=== PATIENT | female | born 1995 | race Caucasian/White ===

== ENCOUNTER 2021-03-16 12:19 | Emergency (ER) | payer BC, SELFPAY ==
--- NOTE | ~2021-03-16 | XR_ITS ---
EXAMINATION: XR foot LT min 3V DATE: 03/16/2021 13:03 INDICATION: Left foot pain TECHNIQUE: Dorsoplantar, lateral, and 2 oblique views of the left foot were obtained. COMPARISON: 09/15/2015 FINDINGS: There is an old healed fracture of the proximal aspect of the fifth metatarsal. There is an acute, traumatic, closed, nondisplaced fracture involving the head of the fifth metatarsal. Soft tis krystian swelling surrounds the fracture. The joint spaces are normal. IMPRESSION: 1. Acute fracture of the fifth metatarsal head. Reviewed, dictated and finalized at location A.
--- NOTE | ~2021-03-16 | XR_ITS ---
EXAMINATION: XR ankle LT min 3V DATE: 03/16/2021 13:03 INDICATION: Left ankle pain TECHNIQUE: Anteroposterior, lateral, mortise, and additional oblique view of the ankle were obtained. COMPARISON: 08/09/2012 FINDINGS: There is an acute fracture in the head of the fifth metatarsal. No ankle fracture is identi fied. Bone alignment is normal. The ankle soft tissues are unremarkable. IMPRESSION: 1. No ankle fracture. 2. Fifth metatarsal head fracture. Reviewed, dictated and finalized at location A.
[2021-03-16 12:30] VITALS: BP 156/94; PULSE 92; RESP 20; TEMP 36.4; O2SAT 100
[2021-03-16 13:47] VITALS: BP 148/62; PULSE 80; RESP 20; TEMP 36.8; O2SAT 99
--- NOTE | 2021-03-16 13:59 | ED.LOWEXIN ---
HPI - Extremity Injury (Lower) General Chief Complaint: Extremity Injury, Lower Stated Complaint: Fall, Left Foot Injury Time Seen by Provider: 03/16/21 13:54 Source: RN notes reviewed History of Present Illness HPI Narrative: Patient presents to emergency department from home for left foot pain. Patient states 2 days ago she is coming down the stairs when she tripped on the stairs and rolled her right ankle and foot states that since that time she is had pain with ecchymosis in the left lateral foot she denies any other trauma or injury she states she has been wearing a boot if she is fractured her right fifth metatarsal in the past and has crutches at home and is been taking ibuprofen Related Data Allergies Allergy/AdvReac Type Severity Reaction Status Date / Time codeine Allergy Mild Unknown Verified 11/16/19 13:00 Review of Systems Review of Systems: Narrative: Gen.: Denies fevers or chills Musculoskeletal: See HPI Neuro: Denies numbness, tingling, weakness Skin: Denies rash Endo: Denies DM PMFSH Past Medical History Medical History (Updated 03/16/21 @ 14:01 by Vinod Melendrez DO) Chronic headaches Sleep apnea Weight gain Surgical History Surgical History History of cholecystectomy Family History Family History Other Arthritis Cancer Heart disease Hypertension Neuropathy Social History Social History Smoking status: Never smoker Alcohol intake: current Substance use: unknown Gender identity (if verbalized by the patient): Female Exam Narrative: Exam Narrative: APPEARANCE: No acute distress, nontoxic, resting in bed Eyes: EOMI HEENT: Normocephalic, atraumatic, RESPIRATORY: No respiratory distress MUSCULOSKELETAl: Tender to palpation over the left dorsal lateral foot in the region of the fifth metatarsal no tenderness of the medial lateral malleolus no proximal fibula tenderness dorsalis pedis pulse 2+ neurovascular intact NEURO: Awake and alert. Following commands, speech normal, no focal deficits SKIN:: Warm, dry. Normal Color no rash or lesions Course Course Emergency Course: Patient states she is followed up with Dr. Bajwa for her other foot fractures in past and will follow she will continue to use the crutches she has at home as well as boot Discussed with patient results of workup and diagnosis. Discussed need for follow-up with primary care, proper use of medication, and reasons to return to the emergency department. Patient understands and agrees to current treatment plan Vital Signs Vital signs: Vital Signs Temperature 97.6 F 03/16/21 12:30 Pulse Rate 92 03/16/21 12:30 Respiratory Rate 20 03/16/21 12:30 Blood Pressure 156/94 H 03/16/21 12:30 Pulse Oximetry 100 03/16/21 12:30 Temperature 98.2 F 03/16/21 13:47 Pulse Rate 80 03/16/21 13:47 Respiratory Rate 20 03/16/21 13:47 Blood Pressure 148/62 H 03/16/21 13:47 Pulse Oximetry 99 03/16/21 13:47 MDM - Extremity Injury (Lower) Imaging Data Radiologist's impression: ITS Impressions Foot X-Ray 03/16/21 13:03 IMPRESSION: 1. Acute fracture of the fifth metatarsal head. Ankle X-Ray 03/16/21 13:07 IMPRESSION: 1. No ankle fracture. 2. Fifth metatarsal head fracture. Discharge Plan Discharge Clinical Impression: Closed nondisplaced fracture of fifth left metatarsal bone Patient Disposition: Home, Self-Care Condition: Stable Instructions: Antibiotic Form, Foot Fracture in Adults (ED) Additional Instructions: Return for increasing pain numbness or tingling in the extremities or any other symptoms or concern. Take ibuprofen at home as directed on the bottle for pain. Continue to use your boot and crutches you have at home until follow-up with orthopedics Prescriptions: No Action albuterol sulfate
--- NOTE | 2021-03-16 14:08 | PC.NURSE ---
patient has her own boot from a previous fracture which she applied
== END 2021-03-16 14:16 | disposition home or self-care (01) ==
PROVIDERS: Emergency Provider Emergency Medicine; PCP Internal Medicine
DX: S92.355A Nondisplaced fracture of fifth metatarsal bone, left foot, initial encounter for closed fracture (principal); W10.9XXA Fall (on) (from) unspecified stairs and steps, initial encounter
CPT/HCPCS: 73610; 73630; 99284

== ENCOUNTER 2021-04-03 12:48 | Outpatient (CLI) | payer BC, SELFPAY ==
--- NOTE | ~2021-04-03 | XR_ITS ---
EXAMINATION: XR foot RT min 3V EXAM DATE: 04/03/2021 13:05 INDICATION: Follow up, pain 5th digit into foot. TECHNIQUE: Right foot dorsoplantar, lateral and oblique projections obtained and reviewed. Compariso n is made to prior examination from 08/27/2019, 10/29/2019, 11/16/2019. FINDINGS: There is been progressive interval healing in the previously seen right 5th metatarsal shaf t stress fracture, with discrete lucency identified in 2018, becoming less apparent in 2019, and now with only faint band of sclerosis at that location, nearly healed stress fracture. No acute fracture line is identified. There are no bony erosions identified. The joint spaces are uniform. IMPRESSION: Essentially healed right 5th metatarsal stress fracture. Reviewed, dictated and finalized at location A.
--- NOTE | ~2021-04-03 | XR_ITS ---
XR foot LT min 3V DATE: 04/03/2021 13:05 INDICATION: Fifth metatarsal fracture TECHNIQUE: 4 views COMPARISON: 03/16/2021 left foot FINDINGS: The previous very subtle nondisplaced fracture at the neck of the fifth metatarsal bone is unchanged in position since 03/16/2021, with no obvious healing new bone formation.. No other fracture or dislocation. IMPRESSION: Very subtle nondisplaced fifth metatarsal neck fracture Reviewed, dictated and finalized at location B.
== END 2021-04-03 12:49 | disposition home or self-care (01) ==
LOC: ANHBWCIMG 12:49
PROVIDERS: PCP Internal Medicine; Visit Provider Orthopaedic Surgery
DX: M79.671 Pain in right foot (principal); M79.672 Pain in left foot
CPT/HCPCS: 73630

== ENCOUNTER 2021-04-17 13:04 | Outpatient (CLI) | payer BC, SELFPAY ==
--- NOTE | ~2021-04-17 | XR_ITS ---
EXAMINATION: XR foot LT min 3V DATE: 04/17/2021 13:16 INDICATION: Left fifth metatarsal fracture follow-up TECHNIQUE: Dorsoplantar, lateral, and 2 oblique views of the left foot were obtained. COMPARISON: 04/03/2021 FINDINGS: There is calcified callus at the site of the previously described fifth metatarsal head/nec k fracture. Soft tissue swelling is seen near the fracture site. No additional acute osseous findings are evident. The joint spaces are normal. IMPRESSION: 1. Fifth metatarsal head/neck fracture with routine healing. Reviewed, dictated and finalized at location A.
== END 2021-04-17 13:05 | disposition home or self-care (01) ==
LOC: ANHBWCIMG 13:04
PROVIDERS: PCP Internal Medicine; Visit Provider Orthopaedic Surgery
DX: S92.355A Nondisplaced fracture of fifth metatarsal bone, left foot, initial encounter for closed fracture (principal); X58.XXXA Exposure to other specified factors, initial encounter
CPT/HCPCS: 73630

== ENCOUNTER 2024-10-05 08:06 | Emergency (ER) | payer OTHER, SELFPAY ==
--- NOTE | ~2024-10-05 | XR_ITS ---
EXAMINATION: XR foot LT min 3V DATE: 10/05/2024 08:28 INDICATION: Pain to the left great toe post blunt trauma TECHNIQUE: Dorsoplantar, two oblique and lateral views of the left foot were obtained. COMPARISON: 04/17/2021 FINDINGS: Alignment is normal. No fracture. Joint spaces are normal. Small enthesophytes at the calcaneal inser tion of the distal Achilles tendon. Soft tissues are unremarkable. IMPRESSION: 1. No acute osseous abnormality. Reviewed, dictated and finalized at location B. 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
[2024-10-05 08:18] VITALS: BP 140/88; PULSE 92; RESP 16; TEMP 36.6; O2SAT 97
--- NOTE | 2024-10-05 08:46 | ED.LOWEXIN ---
HPI - Extremity Injury (Lower) General Chief Complaint: Extremity Injury, Lower Stated Complaint: left foot injury Time Seen by Provider: 10/05/24 08:44 Source: patient and family Mode of arrival: ambulatory Limitations: no limitations History of Present Illness HPI Narrative: Patient came to the ED with left foot pain dorsally after dropped a 35 lb weight while working out at the gym last night. She denies other injuries. Pain worse if she put weight on it. Related Data Home Medications ?Medication ?Instructions ?Recorded ?Confirmed ?Last Taken ?Type cariprazine 1.5 mg capsule 1.5 mg PO DAILY 03/21/21 04/17/21 Unknown History (Vraylar) Allergies Allergy/AdvReac Type Severity Reaction Status Date / Time codeine Allergy Mild Unknown Verified 10/05/24 08:23 Review of Systems Review of Systems: All systems reviewed & are unremarkable except as noted in HPI and below PMFSH Past Medical History Medical History Depression Diarrhea Nausea Wears glasses Cavus deformity of foot Fracture of fifth metatarsal bone of left foot Sleep apnea Chronic headaches Weight gain Surgical History Surgical History History of tonsillectomy and adenoidectomy History of cholecystectomy Family History Family History Mother Cancer Depression Grandparent Breast cancer Lung cancer Hypertension Depression Cerebrovascular accident Other Arthritis Heart disease Neuropathy Social History Social History Alcohol intake: current Alcohol use details: 8 per month Substance use: current Substance use type: marijuana Living arrangements: with family Occupation/Education: student Gender identity (if verbalized by the patient): Female Exam Narrative: General appearance: Well-developed, well-nourished Skin: Normal color Abdomen: Soft, nontender, no organomegaly, quiet bowel sounds Vascular: Normal peripheral pulses, normal capillary refill. Musculoskeletal: Left foot showed diffuse tenderness dorsally, slightly bruised tender to touch Neurologic: Alert and oriented ?3 Course Vital Signs Vital signs: Vital Signs Temperature 36.6 C 10/05/24 08:18 Pulse Rate 92 10/05/24 08:18 Respiratory Rate 16 10/05/24 08:18 Blood Pressure 140/88 10/05/24 08:18 Pulse Oximetry 97 10/05/24 08:18 Oxygen Delivery Room Air 10/05/24 08:18 Temperature 36.6 C 10/05/24 08:18 Pulse Rate 92 10/05/24 08:18 Respiratory Rate 16 10/05/24 08:18 Blood Pressure 140/88 10/05/24 08:18 Pulse Oximetry 97 10/05/24 08:18 Oxygen Delivery Room Air 10/05/24 08:18 MDM - Extremity Injury (Lower) MDM Narrative Medical decision making narrative: Differential diagnosis include contusion, fracture. X-ray of the left foot showed no acute osseous abnormality. Imaging Data Radiologist's impression: Impressions Foot X-Ray 10/05/24 08:31 IMPRESSION: 1. No acute osseous abnormality. Critical Care Time Critical Care Time Critical Care Time: No Discharge Plan Discharge Clinical Impression: Contusion of foot, left Patient Disposition: Home, Self-Care Condition: Stable Instructions: Foot Contusion (ED) Additional Instructions: Return if symptoms are worsening , call your family physician for appointment, take Tylenol, ibuprofen as as needed for aches and pain, continue home medications. Keep foot elevated, ice pack 20 minutes/hour for the next 24 hours Avoid putting weight on the left foot, crutches Patient Language: Vietnamese Prescriptions: No Action Vraylar 1.5 mg capsule 1.5 mg PO DAILY albuterol sulfate 90 mcg/actuation HFA aerosol inhaler 2 inhalation INHALATION Q4H PRN (Reason: shortness of breath or wheezing) Qty: 8.5 2RF Follow-up/Referrals: Hilton,Kelton Jovel MD [Primary Care Provider] -
== END 2024-10-05 09:23 | disposition home or self-care (01) ==
LOC: ANHED 09:06
PROVIDERS: Emergency Provider Emergency Medicine; PCP Internal Medicine
DX: S90.32XA Contusion of left foot, initial encounter (principal); F32.A Depression, unspecified; G47.30 Sleep apnea, unspecified; W20.8XXA Other cause of strike by thrown, projected or falling object, initial encounter
CPT/HCPCS: 73630; 99283